=== PATIENT | male | born 1935 | race Caucasian/White ===

== ENCOUNTER → 2018-02-17 | Outpatient (CLI) | payer MEDICARE, OTHER | LOC: M WUC 10:04 | DX: S20.212A Contusion of left front wall of thorax, initial encounter (principal); W18.30XA Fall on same level, unspecified, initial encounter; Y92.009 Unspecified place in unspecified non-institutional (private) residence as the place of occurrence of the external cause | CPT/HCPCS: 71101 ==

== ENCOUNTER → 2021-11-02 | Outpatient (REF) | payer MEDICARE, OTHER | LOC: M LAB REF 16:29 | PROVIDERS: ATTEND Internal Medicine | DX: M25.50 Pain in unspecified joint (principal); R53.83 Other fatigue ==

== ENCOUNTER → 2022-04-02 | Outpatient (REF) | payer MEDICARE, OTHER | LOC: M LAB REF 16:38 | PROVIDERS: ATTEND Internal Medicine | DX: Z01.812 Encounter for preprocedural laboratory examination (principal); R31.9 Hematuria, unspecified ==

== ENCOUNTER → 2022-10-09 | Outpatient (CLI) | payer MEDICARE, OTHER ==
[~2022-10-09] MED LIST: PROHANCE 279.3MG/ML 15ML VIAL ONE
[2022-10-09 15:15] LABS: ALBUMIN 3.3 G/DL (3.2-5.2); ALKALINE PHOSPHATASE 58 U/L (46-116); ALT/SGPT 13 U/L (7.0-40); AST/SGOT 15 U/L (<34); BILIRUBIN,TOTAL 0.6 MG/DL (0.3-1.2); BLOOD UREA NITROGEN 35 MG/DL (9-23); CALCIUM LEVEL 8.8 MG/DL (8.3-10.6); CARBON DIOXIDE LEVEL 28 MMOL/L (20-31); CHLORIDE LEVEL 106 MMOL/L (98-107); CREATININE FOR GFR 1.51 MG/DL (0.70-1.30); GLOMERULAR FILTRATION RATE 46.9 (>35); GLUCOSE, FASTING 111 MG/DL (74-106); POTASSIUM SERUM 4.1 MMOL/L (3.5-5.1); SODIUM LEVEL 141 MMOL/L (136-145)
[2022-10-09 15:20] LABS: CARCINOEMBRYONIC ANTIGEN < 2.0 NG/ML (<2.5)
[2022-10-09 15:36] LABS: CA19-9 TUMOR MARKER,CARBOHYDRA 24.4 U/ML (<35.0)
== END ==
LOC: M PLAIMG 09:00
PROVIDERS: ATTEND Student in an Organized Health Care Education/Training Program
DX: K76.89 Other specified diseases of liver (principal); Z90.49 Acquired absence of other specified parts of digestive tract; N28.1 Cyst of kidney, acquired; K86.9 Disease of pancreas, unspecified
CPT/HCPCS: 36415; 74183; 80053; 82105; 82378; 86301; A9576

== ENCOUNTER → 2024-11-17 | Outpatient (REF) | payer MEDICARE, OTHER ==
[2024-11-20 18:33] LABS: LYME TOTAL ANTIBODY CIA <= 0.90 Index (<=0.90)
== END ==
LOC: M LAB REF 12:14
PROVIDERS: ATTEND Internal Medicine
DX: A69.20 Lyme disease, unspecified (principal); S80.861A Insect bite (nonvenomous), right lower leg, initial encounter